=== PATIENT | male | born 1965 | race Hispanic/Latino ===

== ENCOUNTER 2018-12-10 19:15 | Emergency (ER) | payer SELFPAY ==
--- NOTE | 2018-12-10 20:23 | RAD ---
Exam: XR Knee Lt 4 View STANDARD HISTORY: Left knee pain COMPARISON: None FINDINGS: No acute fracture, dislocation, or other acute osseous abnormality is identified. IMPRESSION: No acute osseous abnormality is identified.
--- NOTE | 2018-12-10 22:40 | ULT ---
EXAM: Left lower extremity venous Doppler HISTORY: Left lower extremity pain primarily posterior to the left knee. FINDINGS: Grayscale, color-flow, Doppler evaluation, spectral analysis of the left lower extremity venous struc tures is performed with 2-D imaging. The left common femoral, superficial femoral, popliteal, posterior tibial, proximal greater saphenous and profunda femoral veins are imaged. There is normal luminal compressibility, flow, and augmentation in the visualized deep venous structu res of the left lower extremity. IMPRESSION: No evidence of a deep vein thrombosis in the visualized deep venous structures left lower extremity.
== END 2018-12-10 22:12 | disposition home or self-care (01) ==
LOC: ERS 19:15 → EDBD 19:15 → ERS 22:12
DX: M79.662 Pain in left lower leg (principal)

== ENCOUNTER 2020-11-14 00:32 | Inpatient (IN) | payer SELFPAY ==
[2020-11-14 01:47] LABS: #Lymphocytes 1.5 thou/uL (1.20-3.40); #Monocytes 0.3 thou/uL (0.11-0.59); #Neutrophils 4.5 thou/uL (1.40-6.50); %Basophils 0.5 % (0.0-1.0); %Eosinophils 0.4 % (0.0-10.0); %Lymphocytes 23.2 % (21.0-51.0); %Monocytes 4.4 % (0.0-10.0); %Neutrophils 71.5 % (42.0-75.0); Hemoglobin 12.1 g/dL (14.0-18.0); Mean Corpuscular HGB CONC 35.8 g/dL (32.0-36.0); Mean Corpuscular Volume 97.6 fL (78.0-98.0); Mean Platelet Volume 9.5 fL (7.4-10.4); Platelet Count 151 thou/uL (130-400); RBC Distribution Width 17.3 % (11.5-14.5); Red Blood Cell (RBC) Count 3.48 mill/uL (4.70-6.10); White Blood Cell (WBC) Count 6.3 thou/uL (4.8-10.8)
[2020-11-14 01:58] LABS: AST (SGOT) 317 U/L (5-34); Alcohol 295 mg/dL (Less than 10); Alkaline Phosphatase 857 U/L (40-110); Anion Gap 21 mmol/L (10-20); BUN (Urea Nitrogen) 11 mg/dL (8.4-25.7); Bilirubin, Total 6.7 mg/dL (0.2-1.2); Calc. Creatinine Clearance 0 mL/min (70-130); Carbon Dioxide 23 mmol/L (22-29); Chloride 86 mmol/L (98-107); Globulin 3.6 g/dL (2.4-3.5); Glucose 457 mg/dL (70-105); Potassium 4.3 mmol/L (3.5-5.1); Protein, Total 6.6 g/dL (6.0-8.3); Sodium 126 mmol/L (136-145)
[2020-11-14] MEDS ORDERED: Thiamine HCl 200 MG/2 ML VIAL SLOW IVP SCH (02:15)
[2020-11-14] MEDS ORDERED: Folic Acid 1 MG, Multivitamins, Adult 10 ML in Dextrose 5 %-0.45 % NaCl 1,000 ML IV SCH (02:30)
[2020-11-14] MEDS ORDERED: Insulin Regular 300 UNITS/3 ML VIAL ONE (02:31)
[2020-11-14 02:38] LABS: Actual Bicarbonate (HCO3v) 23 mEq/L (22-28); Analyzer IN Cardio ER; Base Excess -1.6 mEq/L (-2.0 to +3.0); Calcium, Ionized (venous) 1.03 mmol/L (1.16-1.32); Chloride (VBG) 91 mmol/L (98-106); Hemoglobin (Hb) 12.3 g/dL (13.1-17.2); Potassium (VBG) 4.31 mmol/L (3.70-5.30); Sodium 126.6 mmol/L (133-146); pH (venous) 7.39 (7.32-7.43)
[2020-11-14 03:16] LABS: ALT (SGPT) 204 U/L (8-55)
[2020-11-14 04:37] VITALS: BMI 21.8
[2020-11-14 04:45] LABS: Amphetamine Not Detected (NotDetected); Barbiturates Screen Not Detected (NotDetected); Benzodiazepine Screen Not Detected (NotDetected); Cocaine Metabolite Screen Not Detected (NotDetected); Medtox Control Line Valid? VALID (VALID); Medtox Reader # READER 4; Methadone Not Detected (NotDetected); Methamphetamine Not Detected (NotDetected); Opiate Screen Not Detected (NotDetected); Oxycodone Screen Not Detected (NotDetected); Phencyclidine (PCP) Not Detected (NotDetected); THC/Cannabinoid Screen Not Detected (NotDetected); Tricyclic Screen Not Detected (NotDetected)
[2020-11-14] MEDS ORDERED: Senokot S 8.6-50 MG TAB PO PRN (05:28)
[2020-11-14] MEDS ORDERED: Ondansetron PF 4 MG/2 ML Vial IVP PRN (05:28)
[2020-11-14] MEDS ORDERED: Calcium Carbonate 500 MG ChewTAB PO PRN (05:28)
[2020-11-14] MEDS ORDERED: Loperamide HCl 2 MG CAP PO PRN (05:28)
[2020-11-14] MEDS ORDERED: Guaifenesin DM 100-10/5 ML UDCUP PO PRN (05:28)
[2020-11-14] MEDS ORDERED: Bisacodyl 10 MG SUPP PR PRN (05:28)
[2020-11-14] MEDS ORDERED: Lorazepam 2 MG/ML VIAL SLOW IVP PRN (05:29)
[2020-11-14] MEDS ORDERED: Multivit, Adult Inj 10 ML VIAL IV SCH (05:30)
[2020-11-14] MEDS ORDERED: HumaLOG 300 UNITS/3 ML VIAL SC PRN (05:38)
[2020-11-14] MEDS ORDERED: Dextrose 50% Abboject 50 ML SYRINGE SLOW IVP PRN (05:38)
[2020-11-14] MEDS ORDERED: Dextrose 5% in Water 1,000 ML IV PRN (05:38)
[2020-11-14] MEDS ORDERED: Multivitamins, Adult 10 ML in Sodium Chloride 0.9% 500 ML IV SCH (06:00)
[2020-11-14] MEDS: HumaLOG 300 UNITS/3 ML VIAL SC PRN ×2 (06:37→11:22)
[2020-11-14] MEDS: Sodium Chloride 0.9% 1,000 ML IV SCH ×3 (09:21→22:40)
[2020-11-14] MEDS: Famotidine 20 MG TAB PO SCH ×2 (09:22→22:41)
[2020-11-14] MEDS: Acetaminophen 325 MG TAB PO PRN ×2 (11:13→22:40)
[2020-11-14 15:06] LABS: SARS-CoV-2 PCR by NAA DETECTED (NotDetected)
[2020-11-14 18:22] LABS: Bacteria/HPF 4+ HPF (None Seen); Bilirubin 1+ (Negative); Blood, Urine Trace (Negative); Clarity Extra Turbid (Clear); Glucose, Urine (Dipstick) Normal (Negative); Ketone, Urine Negative (Negative); Leukocyte 500 Leu/uL (Negative); Nitrite Negative (Negative); Protein, Urine (Dipstick) 10 mg/dL (Neg-Trace); Specific Gravity, Urine 1.013 (1.002-1.036); Squamous Epithelial 21-50 HPF (0-3); WBC/HPF Greater than 50 HPF (0-3); pH, Urine 5.5 (5.0-9.0)
[2020-11-14 18:37] LABS: Creatinine, Urine 55.36 mg/dL (63-166)
[2020-11-14] MEDS: Zolpidem Tartrate 5 MG TAB PO PRN (22:40)
[2020-11-14] MEDS: Ondansetron ODT 4 MG TAB PO PRN (22:40)
[2020-11-15 06:34] LABS: #Lymphocytes 1.6 thou/uL (1.20-3.40); #Monocytes 0.3 thou/uL (0.11-0.59); #Neutrophils 3.7 thou/uL (1.40-6.50); %Basophils 0.8 % (0.0-1.0); %Eosinophils 0.9 % (0.0-10.0); %Lymphocytes 28.5 % (21.0-51.0); %Monocytes 4.5 % (0.0-10.0); %Neutrophils 65.3 % (42.0-75.0); Hemoglobin 11.8 g/dL (14.0-18.0); Mean Corpuscular HGB CONC 34.3 g/dL (32.0-36.0); Mean Corpuscular Hemoglobin 33.7 pg (27.0-31.0); Mean Corpuscular Volume 98.5 fL (78.0-98.0); Mean Platelet Volume 9.9 fL (7.4-10.4); Platelet Count 125 thou/uL (130-400); RBC Distribution Width 16.9 % (11.5-14.5); White Blood Cell (WBC) Count 5.7 thou/uL (4.8-10.8)
[2020-11-15 06:35] LABS: Hemoglobin A1c 6.6 % (4.0-6.0)
[2020-11-15 06:50] LABS: ALT (SGPT) 188 U/L (8-55); AST (SGOT) 323 U/L (5-34); Albumin 2.9 g/dL (3.5-5.0); Alkaline Phosphatase 828 U/L (40-110); Anion Gap 16 mmol/L (10-20); BUN (Urea Nitrogen) 6 mg/dL (8.4-25.7); Bilirubin, Total 7.5 mg/dL (0.2-1.2); Calc. Creatinine Clearance 61 mL/min (70-130); Calcium 8.8 mg/dL (7.8-10.44); Carbon Dioxide 23 mmol/L (22-29); Chloride 96 mmol/L (98-107); Globulin 3.5 g/dL (2.4-3.5); Glucose 186 mg/dL (70-105); Magnesium 1.5 mg/dL (1.6-2.6); Potassium 3.7 mmol/L (3.5-5.1); Protein, Total 6.4 g/dL (6.0-8.3); Sodium 131 mmol/L (136-145)
[2020-11-15 06:51] LABS: Phosphorus 1.9 mg/dL (2.3-4.7)
[2020-11-15 06:59] LABS: INR-International Normal Ratio 0.9; Prothrombin Time 12.7 sec (12.0-14.7)
[2020-11-15 07:09] LABS: HBCM Index 0.18 S/CO (0-0.79); HBSAg Index 0.18 S/CO (0-0.99); Hep A IgM AB Non-Reactive (NonReactive); Hep A IgM S/CO 0.48 S/CO (0-0.79); Hep B Surf Ag Non-Reactive S/CO (NonReactive); Hep C IgG Ab Non-Reactive (NonReactive); Hep C Index 0.14 S/CO (0-0.79); Hepatitis B Core IgM Abs Non-Reactive (NonReactive)
[2020-11-15] MEDS: Ondansetron ODT 4 MG TAB PO PRN (08:47)
[2020-11-15] MEDS: Acetaminophen 325 MG TAB PO PRN (08:47)
[2020-11-15] MEDS: Famotidine 20 MG TAB PO SCH ×2 (08:48→20:41)
[2020-11-15] MEDS: HumaLOG 300 UNITS/3 ML VIAL SC PRN (18:05)
[2020-11-15] MEDS: Zolpidem Tartrate 5 MG TAB PO PRN (20:41)
[2020-11-16] MEDS: Sodium Chloride 0.9% 1,000 ML IV SCH ×2 (02:42→08:26)
[2020-11-16] MEDS: HumaLOG 300 UNITS/3 ML VIAL SC PRN ×2 (06:43→12:54)
[2020-11-16] MEDS: Famotidine 20 MG TAB PO SCH ×2 (08:25→21:27)
[2020-11-16] MEDS: Acetaminophen 325 MG TAB PO PRN ×2 (08:41→21:27)
[2020-11-16] MEDS: Thiamine HCl 200 MG/2 ML VIAL SLOW IVP SCH (12:14)
[2020-11-16] MEDS: Multivitamins, Adult 10 ML, Folic Acid 1 MG in Dextrose 5 %-0.45 % NaCl 1,000 ML IV SCH (12:14)
[2020-11-16 12:36] LABS: ALT (SGPT) 152 U/L (8-55); AST (SGOT) 197 U/L (5-34); Albumin 3.1 g/dL (3.5-5.0); Alkaline Phosphatase 784 U/L (40-110); Anion Gap 15 mmol/L (10-20); BUN (Urea Nitrogen) 5 mg/dL (8.4-25.7); Bilirubin, Total 6.1 mg/dL (0.2-1.2); Calc. Creatinine Clearance 66 mL/min (70-130); Calcium 8.6 mg/dL (7.8-10.44); Carbon Dioxide 25 mmol/L (22-29); Chloride 93 mmol/L (98-107); Globulin 3.4 g/dL (2.4-3.5); Glucose 284 mg/dL (70-105); Potassium 3.1 mmol/L (3.5-5.1); Protein, Total 6.5 g/dL (6.0-8.3); Sodium 130 mmol/L (136-145)
[2020-11-16 12:53] LABS: Vitamin B12 Greater than 2000 pg/mL (211-911)
[2020-11-16 13:30] LABS: Ferritin 2556.07 ng/mL (22-322)
[2020-11-16] MEDS ORDERED: chlordiazePOXIDE HCl 25 MG CAP PO PRN (14:38)
[2020-11-17] MEDS: Thiamine 100 MG TAB PO SCH (08:39)
[2020-11-17] MEDS: Famotidine 20 MG TAB PO SCH ×2 (08:39→19:48)
[2020-11-17] MEDS: Acetaminophen 325 MG TAB PO PRN ×2 (10:58→17:27)
[2020-11-17] MEDS: Thiamine HCl 200 MG/2 ML VIAL SLOW IVP SCH (12:02)
[2020-11-17] MEDS: Multivitamins, Adult 10 ML, Folic Acid 1 MG in Dextrose 5 %-0.45 % NaCl 1,000 ML IV SCH (12:02)
[2020-11-17] MEDS: HumaLOG 300 UNITS/3 ML VIAL SC PRN (12:10)
[2020-11-18] MEDS: Acetaminophen 325 MG TAB PO PRN (00:37)
[2020-11-18] MEDS: HumaLOG 300 UNITS/3 ML VIAL SC PRN (05:47)
[2020-11-18 06:32] LABS: ALT (SGPT) 105 U/L (8-55); AST (SGOT) 121 U/L (5-34); Albumin 2.9 g/dL (3.5-5.0); Alkaline Phosphatase 677 U/L (40-110); Anion Gap 13 mmol/L (10-20); BUN (Urea Nitrogen) 5 mg/dL (8.4-25.7); Calc. Creatinine Clearance 67 mL/min (70-130); Calcium 8.8 mg/dL (7.8-10.44); Carbon Dioxide 26 mmol/L (22-29); Chloride 100 mmol/L (98-107); Globulin 3.3 g/dL (2.4-3.5); Glucose 183 mg/dL (70-105); Potassium 3.8 mmol/L (3.5-5.1); Protein, Total 6.2 g/dL (6.0-8.3); Sodium 135 mmol/L (136-145)
[2020-11-18] MEDS: Famotidine 20 MG TAB PO SCH (08:20)
[2020-11-18] MEDS: Thiamine 100 MG TAB PO SCH (08:20)
[2020-11-18] MEDS: Thiamine HCl 200 MG/2 ML VIAL SLOW IVP SCH (11:46)
[2020-11-18] MEDS: Multivitamins, Adult 10 ML, Folic Acid 1 MG in Dextrose 5 %-0.45 % NaCl 1,000 ML IV SCH (11:46)
[2020-11-18 12:09] VITALS: BP 103/59; TEMP 98.4
== END 2020-11-18 13:19 | disposition home or self-care (01) | DRG 896 ==
LOC: ERS 00:32 → SJJU 03:11 → OBSVTOIN 14:45 → T4-A 20:42
PROVIDERS: ADMIT Internal Medicine; ATTEND Internal Medicine
PROC: HZ2ZZZZ Detoxification Services for Substance Abuse Treatment (ICD-10-PCS; principal; 2020-11-14)
PROC: 8E0ZXY6 Isolation (ICD-10-PCS; 2020-11-14)
DX: F10.229 Alcohol dependence with intoxication, unspecified (principal); U07.1 COVID-19; E87.1 Hypo-osmolality and hyponatremia; Y90.8 Blood alcohol level of 240 mg/100 ml or more; E11.65 Type 2 diabetes mellitus with hyperglycemia; D53.9 Nutritional anemia, unspecified; F17.210 Nicotine dependence, cigarettes, uncomplicated; K70.10 Alcoholic hepatitis without ascites; K76.0 Fatty (change of) liver, not elsewhere classified
CPT/HCPCS: 36415; 36416; 71045; 76705; 80053; 80074; 80306; 80307; 81003; 81015; 82010; 82140; 82570; 82607; 82728; 82805; 83036; 83735; 83930; 83935; 84100; 84300; 84443; 84484; 85025; 85610; 86140; 87635; 93005; 96365; 96366; 96375; G0378; J1815; J2060; J2405; J3411; J7030; J7042; Q0162; U0003; U0005